=== PATIENT | male | born 1995 | race Caucasian/White ===

== ENCOUNTER 2021-05-16 22:07 | Emergency (ER) | payer OTHER ==
--- NOTE | 2021-05-16 22:17 | ED Physician Documentation ---
PD HPI HEENT - Stated complaint Stated Complaint: DIZZY - Chief complaint Chief Complaint: General - History obtained from History obtained from: Patient - History of Present Illness Timing - onset: How many hours ago (1), Today Timing - duration: Minutes Timing - details: Gradual onset, Waxing and waning Location: Other (feeling of lightheadedness during working out. Not vertigo (he says dizzy but had him better describe and it is lightheaded, with nausea and sweaty feeling). Is feeling improved enroute here with just some lightheaded with sitting. No change with just head movement.) Worsens: No: Position Associated symptoms: No: Fever, Congestion, Headache Similar symptoms before: No diagnosis (has had this episodically with activity/exertion for few weeks. No full syncope. NO chest pain. Sometimes dypsnea.) Recently seen: Not recently seen, Other (Had COVID vaccine in January without any problems following it.) Review of Systems Constitutional: denies: Fever, Chills, Myalgias Nose: denies: Rhinorrhea / runny nose, Congestion Throat: denies: Sore throat Cardiac: denies: Chest pain / pressure Respiratory: reports: Dyspnea. denies: Cough GI: reports: Nausea. denies: Abdominal Pain, Vomiting Neurologic: denies: Focal weakness, Numbness, Headache Psychiatric: denies: Insomnia Endocrine: denies: Weight loss PD PAST MEDICAL HISTORY - Past Medical History Cardiovascular: None Respiratory: None Neuro: None Endocrine/Autoimmune: None - Present Medications Home Medications: Ambulatory Orders Medication Instructions Recorded Confirmed No Known Home Medications 05/16/21 05/16/21 - Allergies Allergies/Adverse Reactions: Allergies Allergy/AdvReac Type Severity Reaction Status Date / Time No Known Drug Allergies Allergy Verified 05/16/21 22:10 - Living Situation Living Situation: reports: With spouse/s.o. Living Arrangement: reports: At home - Social History Does the pt smoke?: No Does the pt drink ETOH?: No Does the pt have substance abuse?: No Additional Social History: occasional energy drinks every 2-3 days. Can have them before workouts. PD ED PE NORMAL - Vitals Vital signs reviewed: Yes - General General: Alert and oriented X 3, No acute distress, Well developed/nourished - HEENT HEENT: Moist mucous membranes, Pharynx benign - Neck Neck: Supple, no meningeal sign, No adenopathy - Cardiac Cardiac: RRR, No murmur, No rub - Respiratory Respiratory: Clear bilaterally - Abdomen Abdomen: Soft, Non tender - Derm Derm: Normal color, Warm and dry - Extremities Extremities: No tenderness to palpate, Normal ROM s pain, No edema, No calf tenderness / cord - Neuro Neuro: Alert and oriented X 3, No motor deficit, Normal speech Results - Vitals Vitals: Vital Signs - 24 hr 05/16/21 05/17/21 22:10 00:11 Temperature 36.5 C Heart Rate 70 76 Respiratory 16 16 Rate Blood Pressure 147/71 H 106/70 O2 Saturation 100 100 Oxygen O2 Source Room air - Labs Labs: Laboratory Tests 05/16/21 05/16/21 05/16/21 22:55 22:55 22:55 WBC 13.6 H RBC 4.82 Hgb 14.9 Hct 42.3 MCV 87.8 MCH 30.9 MCHC 35.2 RDW 12.1 Plt Count 197 MPV 10.2 Neut # (Auto) 11.5 H Lymph # (Auto) 1.0 L [place] # (Auto) 0.9 Eos # (Auto) 0.1 Baso # (Auto) 0.0 Absolute Nucleated RBC 0.00 Nucleated RBC % 0.0 Sodium 138 Potassium 3.8 Chloride 102 Carbon Dioxide 24 Anion Gap 12.0 BUN 16 Creatinine 1.0 Estimated GFR (MDRD) 89 Glucose 104 H Calcium 9.4 Magnesium 1.8 Total Bilirubin 0.9 AST 85 H ALT 46 Alkaline Phosphatase 67 Troponin I High Sens Total Protein 7.5 Albumin 4.9 Globulin 2.6 Albumin/Globulin Ratio 1.9 Lipase 23 TSH 2.70 05/16/21 22:55 WBC RBC Hgb Hct MCV MCH MCHC RDW Plt Count MPV Neut # (Auto) Lymph # (Auto) Placer # (Auto) Eos # (Auto) Baso # (Auto) Absolute Nucleated RBC Nucleated RBC % Sodium Potassium Chloride Carbon Dioxide Anion Gap BUN Creatinine Estimated GFR (MDRD) Glucose Calcium Magnesium Total Bilirubin AST ALT Alkaline Phosphatase Troponin I High Sens 3.9 Total Protein Albumin Globulin Albumin/Globulin Ratio Lipase TSH PD MEDICAL DECISION MAKING - ED course Complexity details: considered differential (episodic lightheaded and today with sweaty with it. Has had it episodically the past few weeks. Has often occurred during exertion. ), d/w patient Departure - Departure Disposition: 01 Home, Self Care Clinical Impression: Episodic lightheadedness Condition: Stable Record reviewed to determine appropriate education?: Yes Comments: Regular work is okay. Avoid really exertional activity such as working out at the gym or such for several days until following up with your primary care. Follow-up with your primary care this week, call for an appointment. Your EKG and vital signs blood pressure and basic blood tests are good here. No signs of heart inflammation or heart attack and no diabetes, thyroid problems, electrolyte problems or anemia. Given the exertional/activity related pattern of your lightheaded symptoms, I would suggest for your primary care provider evaluating you with an ultrasound of the heart (echocardiogram) and possibly a stress test. These would need to get ordered for outpatient. Stay well-hydrated. No caffeinated beverages. Eat regularly. Discharge Date/Time: 05/17/21 00:11
[2021-05-16] MEDS ORDERED: ONDANSETRON 4 MG/2 ML VIAL IVP STA (22:39)
[2021-05-16] MEDS ORDERED: SODIUM CHLORIDE 0.9% 1,000 ML IV STA (22:39)
[2021-05-16 23:06] LABS: BASOPHILS % (AUTO) 0.3 %; EOSINOPHILS # (AUTO) 0.1 10^3/uL (0.0-0.7); EOSINOPHILS % (AUTO) 0.5 %; HCT - HEMATOCRIT 42.3 % (42.0-52.0); HGB - HEMOGLOBIN 14.9 g/dL (14.0-18.0); MEAN CORPUSCULAR HEMOGLOBIN 30.9 pg (27.0-31.0); MEAN CORPUSCULAR HGB CONC 35.2 g/dL (32.0-36.0); MEAN CORPUSCULAR VOLUME 87.8 fL (80.0-94.0); MEAN PLATELET VOLUME 10.2 fL (7.4-11.4); MONOCYTES # (AUTO) 0.9 10^3/uL (0.0-1.0); MONOCYTES % (AUTO) 6.9 %; NEUTROPHILS # (AUTO) 11.5 10^3/uL (1.5-6.6); NEUTROPHILS % (AUTO) 84.9 %; PLT - PLATELET COUNT 197 10^3/uL (130-450); RED BLOOD COUNT 4.82 10^6/uL (4.70-6.10); RED CELL DISTRIBUTION WIDTH 12.1 % (12.0-15.0); WHITE BLOOD COUNT 13.6 x10^3/uL (4.8-10.8)
[2021-05-16 23:34] LABS: ALBUMIN 4.9 g/dL (3.2-5.5); ALBUMIN/GLOBULIN RATIO 1.9 (1.0-2.2); BILIRUBIN,TOTAL 0.9 mg/dL (0.2-1.0); CALCIUM 9.4 mg/dL (8.5-10.3); MAGNESIUM 1.8 mg/dL (1.7-2.8); POTASSIUM 3.8 mmol/L (3.5-5.0); TOTAL PROTEIN 7.5 g/dL (6.7-8.2)
[2021-05-17 00:12] VITALS: BP 106/70
== END 2021-05-17 00:11 | disposition home or self-care (01) ==
LOC: ED 22:07
DX: R42 Dizziness and giddiness (principal)
CPT/HCPCS: 36415; 80053; 83690; 83735; 84443; 84484; 85025; 93005; 96374; 99284

== ENCOUNTER 2022-07-24 13:19 | Outpatient (CLI) | payer OTHER ==
--- NOTE | 2022-07-25 08:35 | XRAY Report ---
PROCEDURE: Foot 2 View RT INDICATIONS: R FOOT PX TECHNIQUE: 2 views of the foot were acquired. COMPARISON: None. FINDINGS: Bones: No fractures or dislocations. No suspicious bony lesions. Soft tissues: No tibiotalar joint effusion. Achilles tendon appears normal. IMPRESSION: No acute osseous amenities. If clinical symptoms persist, a repeat examination in 7-10 days or advanc ed imaging such as MRI may be helpful. Reviewed by: Leatha Logan MD on 07/25/2022 8:34 AM PDT Approved by: Leatha Logan MD on 07/25/2022 8:34 AM PDT Station ID: [id number]
== END 2022-07-24 13:20 | disposition home or self-care (01) ==
LOC: DI.N 13:19
PROVIDERS: ATTEND Nurse Practitioner
DX: M79.671 Pain in right foot (principal)

== ENCOUNTER 2024-01-09 17:59 | Emergency (ER) | payer OTHER ==
[2024-01-09 18:25] VITALS: O2SAT 100
[2024-01-09 18:45] LABS: BASOPHILS % (AUTO) 0.3 %; EOSINOPHILS # (AUTO) 0.1 10^3/uL (0.0-0.7); EOSINOPHILS % (AUTO) 0.4 %; HGB - HEMOGLOBIN 15.3 g/dL (14.0-18.0); LYMPHOCYTES # (AUTO) 1.2 10^3/uL (1.5-3.5); LYMPHOCYTES % (AUTO) 10.4 %; MEAN CORPUSCULAR HEMOGLOBIN 29.9 pg (27.0-31.0); MEAN CORPUSCULAR HGB CONC 33.3 g/dL (32.0-36.0); MEAN PLATELET VOLUME 10.1 fL (7.4-11.4); MONOCYTES # (AUTO) 0.6 10^3/uL (0.0-1.0); MONOCYTES % (AUTO) 5.3 %; NEUTROPHILS # (AUTO) 9.9 10^3/uL (1.5-6.6); NEUTROPHILS % (AUTO) 83.3 %; PLT - PLATELET COUNT 251 10^3/uL (130-450); RED BLOOD COUNT 5.11 10^6/uL (4.70-6.10); RED CELL DISTRIBUTION WIDTH 12.5 % (12.0-15.0); WHITE BLOOD COUNT 11.9 x10^3/uL (4.8-10.8)
--- NOTE | 2024-01-09 18:51 | ED Physician Documentation ---
PD HPI ABD PAIN - Stated complaint Stated Complaint: ABD PX - Chief complaint Chief Complaint: Abd Pain - Additional information Additional information: 28-year-old male presents emergency department for abdominal pain. Patient says that he for started noticing this last night after eating pizza and he noticed that he has been having this umbilical pain after he eats fatty foods or unhealthy foods per patient. Patient is here because he wants to see if he has an allergy to gluten as his is worried about this. He has had no fevers or chills pain is not localized to 1 specific spot he states that it is, generalized abdominal discomfort with some bloating sensation. No diarrhea. He has taken omeprazole and he has noticed some improvement in pain in his abdomen. No chest pain or shortness of breath. PD PAST MEDICAL HISTORY - Past Medical History Cardiovascular: None Respiratory: None Neuro: None Endocrine/Autoimmune: None - Past Surgical History Past Surgical History: No - Present Medications Home Medications: Ambulatory Orders Medication Instructions Recorded Confirmed No Known Home Medications 05/16/21 01/09/24 - Allergies Allergies/Adverse Reactions: Allergies Allergy/AdvReac Type Severity Reaction Status Date / Time No Known Drug Allergies Allergy Verified 01/09/24 18:18 - Social History Does the pt smoke?: No Smoking Status: Never smoker Does the pt drink ETOH?: No Does the pt have substance abuse?: No - Immunizations Immunizations are current?: Yes PD ED PE NORMAL - Vitals Vital signs reviewed: Yes - General General: Alert and oriented X 3, No acute distress, Well developed/nourished, Other - HEENT HEENT: Atraumatic - Cardiac Cardiac: RRR, No murmur, No gallop, Strong equal pulses - Respiratory Respiratory: No respiratory distress, Clear bilaterally - Abdomen Abdomen: Normal bowel sounds, Soft, Non distended, No organomegaly, Other (Mild tenderness to the supraumbilical region) - Back Back: No CVA TTP - Derm Derm: Normal color, No rash - Psych Psych: Normal mood Results - Vitals Vitals: Vital Signs - 24 hr 01/09/24 01/09/24 01/09/24 18:14 19:21 20:00 Temperature 37.1 C 37.0 C 36.9 C Heart Rate 73 75 71 Respiratory 16 16 14 Rate Blood Pressure 127/80 127/82 H 120/84 H O2 Saturation 100 100 100 Oxygen O2 Source Room air - Labs Labs: Laboratory Tests 01/09/24 01/09/24 01/09/24 18:39 18:39 19:30 WBC 11.9 H RBC 5.11 Hgb 15.3 Hct 46.0 MCV 90.0 MCH 29.9 MCHC 33.3 RDW 12.5 Plt Count 251 MPV 10.1 Neut # (Auto) 9.9 H Lymph # (Auto) 1.2 L [place] # (Auto) 0.6 Eos # (Auto) 0.1 Baso # (Auto) 0.0 Absolute Nucleated RBC 0.00 Nucleated RBC % 0.0 Sodium 139 Potassium 4.1 Chloride 102 Carbon Dioxide 30 Anion Gap 7.0 BUN 11 Creatinine 1.0 Estimated GFR (MDRD) 88 L Glucose 99 Calcium 10.1 Total Bilirubin 0.8 AST 20 ALT 27 Alkaline Phosphatase 57 Total Protein 8.1 Albumin 5.0 Globulin 3.1 Albumin/Globulin Ratio 1.6 Lipase < 10 L Urine Color YELLOW Urine Clarity CLEAR Urine pH 6.0 Ur Specific [place] 1.020 Urine Protein NEGATIVE Urine Glucose (UA) NEGATIVE Urine Ketones NEGATIVE Urine Occult Blood TRACE-INTA Urine Nitrite NEGATIVE Urine Bilirubin NEGATIVE Urine Urobilinogen 0.2 (NORMAL) Ur Leukocyte Esterase NEGATIVE Ur Microscopic Review NOT INDICATED Urine Culture Comments NOT INDICATED PD Medical Decision Making - ED course ED course: 28-year-old male presents emergency department for abdominal pain. Pain is located just above his umbilicus. He received Maalox and simethicone to help with his bloating and abdominal discomfort which significantly alleviated or relieved his abdominal pain. He was able to toleratePalpation without any tenderness to his abdomen after Maalox and simethicone. Patient was offered a CT scan but he opted to hold off for now as it is not likely warranted. He has a very mild leukocytosis, WBC 11.9, no electrolyte abnormalities and urinalysis is unremarkable. Patient told to follow-up with primary care provider he is scheduled appointment in mid January and to keep a food log diary as to different foods that are causing this abdominal discomfort. Patient was informed that we are unable to check him for celiac disease here in the emergency department he is understanding and says he will follow-up with primary care provider. Return precautions given. Departure - Departure Disposition: Home, Self Care Clinical Impression: Indigestion Instructions: Abdominal Pain Comments: Thank you for trusting us with your care, we have evaluated you for your abdominal pain. I believe that you are experiencing indigestion. You had significant improvement of symptoms after receiving Maalox and Gas-X. You can buy both these medications [id number] to help with the symptoms that you are experiencing today. Please follow-up with your primary care provider if your interested in having celiac testing to check for gluten allergy but this is not something that we do here in the emergency department. Please come back to the emergency department if you are starting to notice that your pain is moving to 1 specific spot and staying in that spot, fevers and chills, nausea vomiting, or any other concerning symptoms. Forms: PCP List Discharge Date/Time: 01/09/24 20:05
[2024-01-09 19:01] LABS: ALBUMIN/GLOBULIN RATIO 1.6 (1.0-2.2); ALKALINE PHOSPHATASE 57 IU/L (42-121); ALT ALANINE AMINOTRANSFERASE 27 IU/L (10-60); AST ASPARTATE AMINOTRANSFERASE 20 IU/L (10-42); BILIRUBIN,TOTAL 0.8 mg/dL (0.2-1.0); BUN - BLOOD UREA NITROGEN 11 mg/dL (6-20); CALCIUM 10.1 mg/dL (8.5-10.3); CARBON DIOXIDE - CO2 30 mmol/L (21-32); CHLORIDE 102 mmol/L (101-111); GFR - MDRD 88 (>89); GLUCOSE 99 mg/dL (74-104); LIPASE < 10 U/L (11-82); POTASSIUM 4.1 mmol/L (3.5-4.5); SODIUM 139 mmol/L (135-145); TOTAL PROTEIN 8.1 g/dL (6.4-8.9)
[2024-01-09] MEDS: MAG HYDROX/AL HYDROX/SIMETH 30 ML UDC PO STA (19:27)
[2024-01-09] MEDS: SIMETHICONE CHEW 80 MG TABLET PO STA (19:27)
[2024-01-09 19:42] LABS: BILIRUBIN,URINE NEGATIVE (NEGATIVE); GLUCOSE, URINE (UA) NEGATIVE (NEGATIVE); KETONES,URINE (UA) NEGATIVE (NEGATIVE); LEUKOCYTE ESTERASE, URINE NEGATIVE (NEGATIVE); NITRITE,URINE NEGATIVE (NEGATIVE); OCCULT BLOOD,URINE TRACE-INTA (NEGATIVE); PROTEIN,URINE NEGATIVE (NEGATIVE); UROBILINOGEN,URINE 0.2 (NORMAL) E.U./dL (NORMAL)
[2024-01-09 19:43] LABS: CLARITY,URINE CLEAR (CLEAR)
[2024-01-09 20:08] VITALS: BP 120/84
== END 2024-01-09 20:05 | disposition home or self-care (01) ==
LOC: ED 17:59
DX: K30 Functional dyspepsia (principal); D72.829 Elevated white blood cell count, unspecified
CPT/HCPCS: 36415; 80053; 81003; 83690; 85025; 99283; A9270; 81001; 87086

== ENCOUNTER 2024-01-27 18:10 | Emergency (ER) | payer OTHER ==
[2024-01-27 18:23] VITALS: O2SAT 100
[2024-01-27] MEDS: ALPRAZolam 0.25 MG TABLET PO STA (18:52)
[2024-01-27] MEDS: ONDANSETRON ODT 4 MG TABLET TL STA (18:53)
--- NOTE | 2024-01-27 19:21 | ED Physician Documentation ---
History of Present Illness - Stated complaint Stated Complaint: HEART PALPITATIONS - Chief complaint Chief Complaint: Cardiac - History obtained from History obtained from: Patient - History of Present Illness Timing: Today Pain level max: 0 Pain level now: 0 - Additonal information Additional information: Patient is a 28-year-old male who presents to the emergency department complaining of heart palpitations. Has a history of palpitations with panic attacks in the past. He states he has been worked up several times with no cause found other than anxiety. He states he used to have a prescription for Xanax, would use it approximately 1-2 times per week. Patient recently retired from the [employer] due to his anxiety. He states he met with his PCP recently and they would not refill any Xanax for him. He is not suicidal or homicidal. No cough. No congestion. No chest pain. Does have some nausea. No cardiac history. He states he drinks coffee in the morning but otherwise no caffeine or energy drinks. Review of Systems Constitutional: denies: Fever, Chills Cardiac: reports: Palpitations Respiratory: denies: Dyspnea, Cough GI: denies: Vomiting Skin: denies: Rash Musculoskeletal: denies: Neck pain, Back pain Neurologic: denies: Focal weakness, Numbness, Headache Psychiatric: reports: Anxiety PD PAST MEDICAL HISTORY - Past Medical History Past Medical History: Yes Cardiovascular: None Respiratory: None Neuro: None Endocrine/Autoimmune: None Psych: Panic attacks - Past Surgical History Past Surgical History: No - Present Medications Home Medications: Ambulatory Orders Medication Instructions Recorded Confirmed ALPRAZolam [Alprazolam] 0.5 mg PO DAILY PRN #30 tablet 01/27/24 Buspirone HCl 15 mg PO BID 01/27/24 01/27/24 Glycopyrrolate 1 - 2 tab PO TID PRN 01/27/24 01/27/24 Omeprazole 20 mg PO DAILY 01/27/24 01/27/24 - Allergies Allergies/Adverse Reactions: Allergies Allergy/AdvReac Type Severity Reaction Status Date / Time shellfish derived Allergy Itching Verified 01/27/24 19:28 - Social History Does the pt smoke?: No Smoking Status: Never smoker Does the pt drink ETOH?: No Does the pt have substance abuse?: No - Immunizations Immunizations are current?: Yes - POLST Patient has POLST: No PD ED PE NORMAL - Vitals Vital signs reviewed: Yes - General General: Alert and oriented X 3, No acute distress - HEENT HEENT: PERRL, Moist mucous membranes - Neck Neck: Supple, no meningeal sign - Cardiac Cardiac: RRR, No murmur, Strong equal pulses - Respiratory Respiratory: No respiratory distress, Clear bilaterally - Abdomen Abdomen: Soft, Non tender, Non distended - Derm Derm: Warm and dry - Extremities Extremities: No edema, No calf tenderness / cord - Neuro Neuro: Alert and oriented X 3 - Psych Psych: Normal mood, Normal affect Results - Vitals Vitals: Vital Signs - 24 hr 01/27/24 01/27/24 18:14 19:26 Temperature 36.8 C Heart Rate 90 70 Respiratory 16 21 Rate Blood Pressure 160/90 H 145/90 H O2 Saturation 100 100 Oxygen O2 Source Room air - EKG (time done) 1821 EKG releavant findings:: EKG personally interpreted by author of this note. Relevant findings are: Rate: Rate (enter#) (100) Rhythm: Sinus tachycardia [place]: Normal Intervals: Normal [place] QRS: Normal Ischemia: Normal ST segments PD Medical Decision Making - ED course Complexity details: reviewed results, re-evaluated patient, considered differential, d/w patient ED course: 28-year-old male with a history of anxiety, out of his Xanax that he used to use 1-2 times per week. He states that usually calmed his panic attacks. He was given a dose of Xanax here and anxiety resolved. Palpitations resolved. Feels much better. No significant findings on EKG. No indication for laboratory testing. No evidence of PE, ACS. He is getting ready to move in the next 2 months, therefore we will prescribe Xanax for him. I reviewed his medication history and 30 pills of Xanax had been lasting him anywhere from 3 to 6 months. Therefore this should get him enough to get him to his new place of residence. Patient and family counseled regarding signs and symptoms for which I believe and urgent re-evaluation would be necessary. Patient with good understanding of and agreement to plan and is comfortable going home at this time This document was made in part using voice recognition software. While efforts are made to proofread this document, sound alike and grammatical errors may occur. Departure - Departure Disposition: 01 Home, Self Care Clinical Impression: Anxiety Condition: Good Instructions: ED Panic Attack Follow-Up: your,doctor as needed [Other] Prescriptions: ALPRAZolam [Alprazolam] 0.5 mg PO DAILY PRN #30 tablet PRN Reason: anxiety Comments: Your prescriptions were sent to [facility]. Please follow-up with your doctor for further care. Please return if you worsen. Forms: PCP List Discharge Date/Time: 01/27/24 19:33
[2024-01-27 19:27] VITALS: BP 145/90
== END 2024-01-27 19:33 | disposition home or self-care (01) ==
LOC: ED 18:10
DX: F41.9 Anxiety disorder, unspecified (principal); Z79.899 Other long term (current) drug therapy
CPT/HCPCS: 93005; 99283; 99284; A9270; Q0162